=== PATIENT | male | born 1975 | race Hispanic/Latino ===

== ENCOUNTER 2020-10-13 20:03 | Emergency (ER) | payer SELFPAY ==
[~2020-10-13] VITALS: Ht 170.2 cm; Wt 100.0 kg
[2020-10-13] MEDS ORDERED: PRAVASTATIN20 MG PO (20:30)
[2020-10-13 20:45] LABS: HEMATOCRIT 39.5 % (39.0-50.0); HEMOGLOBIN 13.6 g/dl (14.0-18.0); IMMATURE GRANULOCYTES 0.3 % (0.0-5.0); MEAN CORPUSCULAR HGB 28.9 pG CALC (26.0-32.0); MEAN CORPUSCULAR HGB CONC 34.4 g/dL CAL (32.0-36.0); NEUT# 3.63 thou/uL (1.82-7.42); RED BLOOD COUNT 4.7 mill/uL (4.70-6.10); RED CELL DISTRI WIDTH 12.3 % (11.5-15.5)
[2020-10-13 20:57] LABS: ALBUMIN 4.3 g/dL (3.2-5.0); ALKALINE PHOSPHATASE 74 u/l (38-126); AMYLASE 115 u/l (30-110); ANION GAP 14 (6-22 (CALC)); BILIRUBIN, TOTAL 0.2 mg/dL (0.0-1.4); BUN 10 mg/dL (9-20); BUN/CREATININE RATIO 17 (12-20 (CALC)); CARBON DIOXIDE 24 mmol/l (22-30); CHLORIDE 102 mmol/l (95-108); CREATININE 0.6 mg/dL (0.7-1.3); GFR > 60 ML/MIN (>=60 (CALC)); GFR FOR AFR.AMER. > 60 ML/MIN (>=60 (CALC)); LIPASE 260 u/l (23-300); SGOT/AST 32 u/l (17-59); SODIUM 137 mmol/l (137-146); TOTAL PROTEIN 7.4 g/dL (6.3-8.2)
[2020-10-13 21:03] LABS: D-DIMER 0.17 mg/L (0.19-0.60)
[2020-10-13 21:06] LABS: ACT PARTIAL THROMBO TIME 27.4 SECONDS (20.0-32.5)
[2020-10-13 21:09] LABS: MYOGLOBIN 19 ng/mL (0 - 121)
[2020-10-13] MEDS ORDERED: TORADOL PO (23:48)
[2020-10-14 00:10] VITALS: BP 133/82
== END 2020-10-14 00:19 | disposition home or self-care (01) | DRG 313 ==
LOC: ED 20:03
PROVIDERS: Family Medicine
DX: R07.89 Other chest pain (principal)